=== PATIENT | male | born 1970 | race Caucasian/White ===

== ENCOUNTER 2017-02-02 15:21 | Emergency (ER) | payer OTHER ==
--- NOTE | 2017-02-02 16:21 | CPEKG ---
Heart Rate: 57 RR Interval: 1053 P-R Interval: 160 QRSD Interval: 96 QT Interval: 424 QTC Interval: 413 P Winston: 43 QRS Winston: 4 T Wave Winston: 26 EKG Severity - NORMAL ECG - EKG Impression: SINUS RHYTHM Electronically Signed By: Arcelia Friedman 02-Feb-2017 22:10:50
--- NOTE | 2017-02-02 16:33 | EDPHY ---
H & P Stated Complaint: 1 week HPI/ROS: CHIEF COMPLAINT: Chest pain HISTORY OF PRESENT ILLNESS: This patient is a 46 year old male arriving with his partner complaining of chest pain onset this morning around 00:30, 16 hours ago. He states he woke up and began vomiting, and had pain in his shoulders. He has associated chest pain , and states that he has chest pain often associated with stress. He describes these episodes as "Chest gets tied up on me, like heart is pinched in the middle with little nails when I take a deep breath". He resolves this by holding his breath for around 10 seconds, and then waiting for the sensation to resolve. He states he has had one other episode of chest "pinching" in the last last week. His partner gave him 325mg Aspirin this morning in case of cardiac etiology. She notes she has witnessed episodes of what she believes is sleep apnea at night, and he reports he sometimes has shortness of breath at night. He has declined a sleep study from the [place]. He states he is not currently experiencing the pain/tightness. He denies known family history of cardiac issues. He plans to travel to [place] in two days. REVIEW OF SYSTEMS: A ten point review of systems was performed and is negative with the exception of the items mentioned in the HPI. Source: Patient, Family Exam Limitations: No limitations - Personal History Current Tetanus/Diphtheria Vaccine: No - Medical/Surgical History PMH: 1. Hypertension 2. 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 Significant other at bedside. - Physical Exam Exam: General Appearance: Alert. Vital signs reviewed. Blood pressure 147/101. Eyes: Pupils equal and round, no conjunctival injection, no discharge. Anicteric. ENT, Mouth: Mucous membranes are moist, no oropharyngeal erythema or edema. Neck: No lymphadenopathy, supple. Respiratory: Lungs are clear to auscultation; no wheezes, rales, or rhonchi. Cardiovascular: Regular rate and rhythm; no murmur, rub, or gallop. Gastrointestinal: Abdomen is soft and nontender, no masses or organomegaly, bowel sounds normal. Skin: Warm and dry, no rashes on exposed skin, normal color. Back: Nontender to palpation over the thoracolumbar spine. No CVAT. Extremities: No lower extremity edema, no calf tenderness or swelling. Neurological: Alert and oriented. Moving all four extremities easily and equally. Psychiatric: Normal affect. Constitutional: Initial Vital Signs Temperature (C) 36.4 C 02/02/17 15:34 Heart Rate 64 02/02/17 15:34 Respiratory Rate 20 02/02/17 15:34 Blood Pressure 147/101 H 02/02/17 15:34 O2 Sat (%) 97 02/02/17 15:34 O2 Delivery Mode Room Air Allergies/Adverse Reactions: No Known Allergies Allergy (Verified 02/02/17 15:34) Home Medications: Medication Instructions Recorded KETOROLAC TROMETHAMINE 02/02/17 Medical Decision Making - Diagnostics EKG Interpretation: The 12 lead EKG was interpreted by myself. See hard copy and/or "[email or web address]" electronic copy for interpretation. Sinus rhythm, rate 57. Imaging Results: 2 view cxr viewed by me in PACS. [facility]. Imaging: I viewed and interpreted images myself ED Course/Re-evaluation: This patient is a 46 year old male with history of chest pain, now pain free.. Labs unremarkable. Chest x-ray shows no acute processes. Discussed some of his history, his anxiety and stress--it seems likely that he suffers from PTSD. Reassessed patient. Over the last year, he has noted GI upset with certain acidic or spicy foods, and occasionally takes Prilosec to relieve those symptoms. Discussed normal ab results and normal chest x-ray. Plan to discharge home in good condition with instructions for follow up. I do not think that his pain is cardiac, nor do I think he has had a PE (nl D-dimer). I recommended he follow up with a sleep apnea study and with counseling for PTSD. Return precautions discussed. The patient is comfortable with this plan. Differential Diagnosis: I considered a ddx that includes but is not limited to ACS, PE, pneumonia, pneumothorax, costochondritis, pleuritis, and pericarditis. - Data Points Laboratory Results: Laboratory Results 02/02/17 16:30 02/02/17 16:30 Departure - Departure Disposition: Home, Routine, Self-Care Clinical Impression: Chest pain Qualifiers: Chest pain type: other chest pain Qualified Code(s): R07.89 - Other chest pain ; R07.8 - Other chest pain Condition: Good Instructions: Chest Pain (ED), Noncardiac Chest Pain (ED) Additional Instructions: It isn't entirely clear what is causing your chest pain and other symptoms. As we discussed, there is no single test that will prove that the pain is not coming from your heart. I recommend that you have a sleep study done to assess for sleep apnea. I also recommend an evaluation for PTSD. Try taking an antacid medication daily for the next two weeks. Carry your EKG with you when you travel. 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 Keyla Terrell. Referrals: Mildred CAMPA [Other] - As per Instructions Keyla [place] [place] - As per Instructions Report Scribed for: Arcelia Friedman Report Scribed by: Tamara Weiss Date of Report: 02/02/17 Time of Report: 18:04 Physician Review and Approval Statement: 02/02/17 16:33 Portions of this note were transcribed by the medical record clerk. I, Dr. Arcelia Friedman, personally performed the history, physical exam, and medical decision- making; and confirmed the accuracy of the information in the transcribed note.
[2017-02-02 16:54] LABS: % IMMATURE GRANULYOCYTES 0.7 % (0.0-1.1); ABSOLUTE IMMATURE GRANULOCYTES 0.04 10^3/uL (0.00-0.10); ADD DIFF? NO; ADD MORPH? NO; ADD SCAN? NO; ATYPICAL LYMPHOCYTE FLAG 10 (0-99); FRAGMENT RBC FLAG 0 (0-99); HEMATOCRIT 40.7 % (40.0-51.0); HEMOGLOBIN 14.3 g/dL (13.7-17.5); LEFT SHIFT FLG 0 (0-99); LIPEMIA HEMOLYSIS FLAG 90 (0-99); MEAN CELL HEMOGLOBIN 28.5 pg (27.9-34.1); MEAN CELL HEMOGLOBIN CONCENTR. 35.1 g/dL (32.4-36.7); MEAN CELL VOLUME 81.2 fL (81.5-99.8); MEAN PLATELET VOLUME 10.7 fL (8.7-11.7); PLATELET CLUMPS FLAG 0 (0-99); PLATELET COUNT 227 10^3/uL (150-400); RED BLOOD CELL COUNT 5.01 10^6/uL (4.40-6.38)
[2017-02-02 17:04] LABS: ANION GAP 9 mEq/L (8-16); CALCIUM 9.8 mg/dL (8.5-10.4); CARBON DIOXIDE 27 mEq/l (22-31); CHLORIDE 106 mEq/L (97-110); CREATININE 0.9 mg/dL (0.7-1.3); GLOMERULAR FILTRATION RATE > 60; GLUCOSE 84 mg/dL (70-100); POTASSIUM 4.3 mEq/L (3.5-5.2); SODIUM 142 mEq/L (134-144)
[2017-02-02 17:16] LABS: TROPONIN I < 0.012 ng/mL (0-0.034)
[2017-02-02 18:34] VITALS: BP 134/82; PULSE 66; RESP 17; TEMP 98.2; O2SAT 95
== END 2017-02-02 18:34 | disposition home or self-care (01) ==
DX: R07.89 Other chest pain (principal); I10 Essential (primary) hypertension; Z87.891 Personal history of nicotine dependence

== ENCOUNTER 2017-03-09 21:31 | Emergency (ER) | payer OTHER ==
[2017-03-09] MEDS ORDERED: ONDANSETRON 4 MG/2 ML VIAL ONE (21:44)
[2017-03-09] MEDS ORDERED: ONDANSETRON 4 MG/2 ML VIAL IVP ONE ×2 (21:51→22:51)
[2017-03-09] MEDS ORDERED: fentaNYL 100 MCG/2 ML INJ IVP ONE (21:51)
[2017-03-09] MEDS ORDERED: NS 1,000 ML IV ONE (21:51)
--- NOTE | 2017-03-09 21:58 | EDPHY ---
H & P Time Seen by Provider: 03/09/17 21:44 HPI/ROS: CHIEF COMPLAINT: Headache, "sinus pain" HISTORY OF PRESENT ILLNESS: Patient is a 46-year-old male who presents emergency department with 3 days of sinus issues and congestion. He has developed a worsening headache. It is primarily in the frontal area of his head. It does not radiate. Patient feels as though he has had nasal congestion with mucus discharge. The patient has also developed a cough that is productive of clear colored mucus for the past 2 days. He had an episode of nausea and vomiting on arrival to the emergency department. No abdominal pain. He denies fevers or chills. REVIEW OF SYSTEMS: My complete review of systems is negative except as mentioned in the HPI. Past Medical/Surgical History: Includes anxiety, back pain, hypertension, PTSD Past surgical history: Includes knee surgery Social history: Patient denies drugs or alcohol Smoking Status: Former smoker Physical Exam: 36.7, 150/106, 66, 18, 98% on room air GENERAL: No acute distress, alert. HEENT: Eyes normal to inspection, normal pharynx, no signs of dehydration. NECK: No thyromegaly, no lymphadenopathy, supple. RESPIRATORY: Clear to auscultation bilaterally, no rales, rhonchi or wheezing. CVS: Regular rate and rhythm, no rubs, murmurs, or gallops. ABDOMEN: Soft, nontender, nondistended, no organomegaly. BACK: Normal to inspection, no CVA tenderness. SKIN: Normal color, no rash, warm, dry. No pallor. EXTREMITIES: No pedal edema, no calf tenderness, no Homans sign or cords, no joint swelling. NEURO/PSYCH: Higher functions: Alert and Oriented x3. Normal speech and cognition. Normal mood and affect. Cranial nerves: Normal as tested. Cerebellar: Normal as tested. Good finger to nose, good [id number], normal gait. Peripheral exam: Normal motor exam. Normal sensation. Normal reflexes. Constitutional: Initial Vital Signs Temperature (C) 36.7 C 03/09/17 21:33 Heart Rate 66 03/09/17 21:33 Respiratory Rate 18 03/09/17 21:33 Blood Pressure 150/106 H 03/09/17 21:33 O2 Sat (%) 98 03/09/17 21:33 O2 Delivery Mode Room Air Allergies/Adverse Reactions: No Known Allergies Allergy (Verified 02/02/17 15:34) Home Medications: Medication Instructions Recorded Amoxicillin/Clavulanate Pot 875 mg PO BID 10 Days 03/09/17 [Augmentin 875 mg tab] Ondansetron Odt [Zofran Odt 4 mg 4 mg PO Q4PRN PRN #7 tab 03/09/17 (*)] oxyCODONE/APAP 5/325 [Percocet 1 - 2 tab PO Q4PRN PRN #11 tab 03/09/17 5/325 (*)] Medical Decision Making - Diagnostics Imaging Results: Imaging Impressions Head CT 03/09/17 21:51 Impression: Stable normal head CT. Results reviewed with Dr. Walton at 22:40 General information for patients regarding this examination can be found at [email or web address]. If you have questions or comments about this report, please contact me at (hospital) or [phone] (cell). ED Course/Re-evaluation: In the emergency department I discussed possible etiologies with the patient. I answered all his questions. IV was placed. The patient was given fentanyl 100 mcg IV for pain control. He is given Zofran 4 mg IV for nausea. He is given normal saline 1 L IV for hydration. Laboratory studies and head CT were ordered. On recheck the patient's headache has resolved. He still has mild nausea. No focal deficits on exam. Head CT: Please refer the dictated report by Dr. Jase Clay. No acute disease noted. I discussed the result with the patient. I answered all his questions. Patient states he is feeling better. He had a normal neuro exam. I discussed the limitations of CT imaging. Patient will be given Augmentin, Percocet and Zofran. This will cover for possible sinusitis as well as symptoms of discomfort and nausea. I do not think the patient has meningitis or subarachnoid hemorrhage. I discussed this with the patient and discussed the limitations of the workup thus far. He was given warnings prior to leaving. He will return with worsening symptoms. Differential Diagnosis: My differential includes but is not limited to subarachnoid hemorrhage, sinusitis, meningitis, encephalitis, subdural hematoma, epidural hematoma, viral illness, pneumonia - Data Points Laboratory Results: Laboratory Results 03/09/17 21:50 03/09/17 21:50 03/09/17 03/09/17 21:50 21:50 WBC 5.61 10^3/uL 10^3/uL (3.80-9.50) RBC 5.14 10^6/uL 10^6/uL (4.40-6.38) Hgb 14.5 g/dL g/dL (13.7-17.5) Hct 41.5 % % (40.0-51.0) MCV 80.7 fL L fL (81.5-99.8) MCH 28.2 pg pg (27.9-34.1) MCHC 34.9 g/dL g/dL (32.4-36.7) RDW 12.9 % % (11.5-15.2) Plt Count 191 10^3/uL 10^3/uL (150-400) MPV 10.9 fL fL (8.7-11.7) Neut % (Auto) 57.9 % % (39.3-74.2) Lymph % (Auto) 26.0 % % (15.0-45.0) Burke % (Auto) 11.2 % % (4.5-13.0) Eos % (Auto) 3.9 % % (0.6-7.6) Baso % (Auto) 0.5 % % (0.3-1.7) Nucleat RBC Rel Count 0.0 % % (0.0-0.2) Absolute Neuts (auto) 3.24 10^3/uL 10^3/uL (1.70-6.50) Absolute Lymphs (auto) 1.46 10^3/uL 10^3/uL (1.00-3.00) Absolute Monos (auto) 0.63 10^3/uL 10^3/uL (0.30-0.80) Absolute Eos (auto) 0.22 10^3/uL 10^3/uL (0.03-0.40) Absolute Basos (auto) 0.03 10^3/uL 10^3/uL (0.02-0.10) Absolute Nucleated RBC 0.00 10^3/uL 10^3/uL (0-0.01) Immature Gran % 0.5 % % (0.0-1.1) Immature Gran # 0.03 10^3/uL 10^3/uL (0.00-0.10) Sodium 140 mEq/L mEq/L (134-144) Potassium 4.1 mEq/L mEq/L (3.5-5.2) Chloride 106 mEq/L mEq/L (97-110) Carbon Dioxide 21 mEq/l L mEq/l (22-31) Anion Gap 13 mEq/L mEq/L (8-16) BUN 14 mg/dL mg/dL (7-23) Creatinine 1.1 mg/dL mg/dL (0.7-1.3) Estimated GFR > 60 Glucose 106 mg/dL H mg/dL (70-100) Calcium 10.0 mg/dL mg/dL (8.5-10.4) Medications Given: Discontinued Medications Fentanyl (Sublimaze) 100 mcg IVP EDNOW ONE Stop: 03/09/17 21:52 Last Admin: 03/09/17 21:58 Dose: 100 mcg Sodium Chloride (Ns) 1,000 mls @ 0 mls/hr IV ONCE ONE; Wide Open PRN Reason: Protocol Stop: 03/09/17 21:52 Last Admin: 03/09/17 21:55 Dose: 1,000 mls Ondansetron HCl (Zofran) 4 mg IVP EDNOW ONE Stop: 03/09/17 21:52 Last Admin: 03/09/17 21:55 Dose: 4 mg Departure - Departure Disposition: Home, Routine, Self-Care Clinical Impression: Headache Qualifiers: Headache type: unspecified Headache chronicity pattern: acute headache Intractability: not intractable Qualified Code(s): R51 - Headache Sinusitis Qualifiers: Sinusitis location: ethmoidal Chronicity: acute Recurrence: non-recurrent Qualified Code(s): J01.20 - Acute ethmoidal sinusitis, unspecified Condition: Good Instructions: Acute Headache (ED), Sinusitis (ED) Additional Instructions: Return with increasing headache, persistent fever, weakness, numbness, visual change, neck stiffness or any other concerns. Referrals: Marcy Calle MD [Medical Doctor] - 2-3 days without fail Prescriptions: Amoxicillin/Clavulanate Pot [Augmentin 875 mg tab] 875 mg PO BID 10 Days Ondansetron Odt [Zofran Odt 4 mg (*)] 4 mg PO Q4PRN PRN #7 tab PRN Reason: For Nausea & Vomiting oxyCODONE/APAP 5/325 [Percocet 5/325 (*)] 1 - 2 tab PO Q4PRN PRN #11 tab PRN Reason: For Moderate To Severe Pain
[2017-03-09 21:59] LABS: % IMMATURE GRANULYOCYTES 0.5 % (0.0-1.1); ABSOLUTE IMMATURE GRANULOCYTES 0.03 10^3/uL (0.00-0.10); ADD DIFF? NO; ADD MORPH? NO; ADD SCAN? NO; ATYPICAL LYMPHOCYTE FLAG 20 (0-99); FRAGMENT RBC FLAG 0 (0-99); HEMATOCRIT 41.5 % (40.0-51.0); HEMOGLOBIN 14.5 g/dL (13.7-17.5); LEFT SHIFT FLG 0 (0-99); LIPEMIA HEMOLYSIS FLAG 90 (0-99); MEAN CELL HEMOGLOBIN 28.2 pg (27.9-34.1); MEAN CELL HEMOGLOBIN CONCENTR. 34.9 g/dL (32.4-36.7); MEAN CELL VOLUME 80.7 fL (81.5-99.8); MEAN PLATELET VOLUME 10.9 fL (8.7-11.7); PLATELET CLUMPS FLAG 0 (0-99); PLATELET COUNT 191 10^3/uL (150-400); RED BLOOD CELL COUNT 5.14 10^6/uL (4.40-6.38); RED CELL DISTRIBUTION WIDTH 12.9 % (11.5-15.2)
[2017-03-09 22:05] VITALS: RESP 20
[2017-03-09 22:10] LABS: ANION GAP 13 mEq/L (8-16); CARBON DIOXIDE 21 mEq/l (22-31); CHLORIDE 106 mEq/L (97-110); CREATININE 1.1 mg/dL (0.7-1.3); GLOMERULAR FILTRATION RATE > 60; GLUCOSE 106 mg/dL (70-100); POTASSIUM 4.1 mEq/L (3.5-5.2); SODIUM 140 mEq/L (134-144)
[2017-03-09] MEDS ORDERED: AMOXICILLIN/CLAVULANATE POT 875/125 MG TAB PO ONE (22:51)
[2017-03-09] MEDS ORDERED: ONDANSETRON 4MG PREPACK#2 BTL TAKEHOME ONE (22:51)
[2017-03-09] MEDS ORDERED: OXYCODONE/APAP 5/325MG PREPACK#4 BTL TAKEHOME ONE (22:51)
[2017-03-09 23:25] VITALS: BP 149/91; PULSE 72; TEMP 98.4; O2SAT 99
== END 2017-03-09 23:26 | disposition home or self-care (01) ==
DX: J01.20 Acute ethmoidal sinusitis, unspecified (principal); E86.9 Volume depletion, unspecified; I10 Essential (primary) hypertension; Z87.891 Personal history of nicotine dependence
CPT/HCPCS: 96374; J2405; J3010